=== PATIENT | female | born 1970 | race Caucasian/White ===

== ENCOUNTER 2023-07-03 11:00 | Emergency (ER) | payer MEDICAID ==
[2023-07-03] MEDS ORDERED: Sodium Chloride 0.9% 10 ML Syringe FLUSH PRN (11:24)
[2023-07-03] MEDS ORDERED: Iopamidol 755 Mg/ML 100 ML Bottle IVPUSH ONE (11:24)
[2023-07-03] MEDS ORDERED: Sodium Chloride 0.9% 100 ML IV SCH (11:30)
[2023-07-03 11:44] LABS: BASOPHILS ABSOLUTE AUTO 0.1 K/mm3 (0.0-0.2); EOSINOPHILS ABSOLUTE AUTO 0.2 K/mm3 (0.0-0.4); EOSINOPHILS PERCENT AUTO 2.7 % (0.0-6.0); HEMATOCRIT 42.7 % (37.0-47.0); HEMOGLOBIN 13.8 gm/dl (12.0-16.0); IMMATURE GRAN ABSOLUTE AUTO 0.03 K/mm3 (0.00-0.05); IMMATURE GRAN PERCENT AUTO 0.4 % (0.0-0.4); LYMPHOCYTES ABSOLUTE AUTO 2.4 K/mm3 (1.0-4.8); LYMPHOCYTES PERCENT AUTO 29.2 % (24.0-44.0); MEAN CORPUSCULAR HEMOGLOBIN 26.2 pg (28.0-32.0); MEAN CORPUSCULAR HGB CONC 32.3 g/dl (32.0-36.0); MEAN PLATELET VOLUME 11.9 fl (9.4-12.3); MONOCYTES ABSOLUTE AUTO 0.5 K/mm3 (0.0-0.8); MONOCYTES PERCENT AUTO 6.3 % (0.0-8.0); NEUTROPHILS PERCENT AUTO 60.4 % (41.0-71.0); PLATELET COUNT,PLT 290 K/mm3 (150-400); RED BLOOD CELL COUNT 5.27 M/mm3 (4.10-5.30); WHITE BLOOD CELL COUNT,WBC 8.21 K/mm3 (3.9-11.3)
[2023-07-03 11:55] LABS: INR 0.97; PROTHROMBIN TIME 10.4 SECONDS (9.7-12.0)
[2023-07-03 12:07] LABS: ALBUMIN 3.9 g/dl (3.4-5.0); ANION GAP 15.1 (5-15); BILIRUBIN TOTAL 0.6 mg/dL (0.2-1.0); BUN/CREATININE RATIO 27.8 (14-18); CALCIUM 9.5 mg/dL (8.5-10.1); CREATININE 0.9 mg/dL (0.55-1.02); EST CRCL DRUG DOSING (CG) 67.29 mL/min; POTASSIUM,K 4.1 mEq/L (3.5-5.1); PROTEIN TOTAL,TP 7.9 g/dl (6.4-8.2)
[2023-07-03] MEDS ORDERED: Labetalol 100 MG/20 ML MDV IVPUSH ONE ×2 (12:27→13:36)
[2023-07-03] MEDS ORDERED: Acetaminophen 325 MG Tab PO ONE (12:31)
[2023-07-03 15:24] VITALS: BP 173/100; PULSE 64
== END 2023-07-03 14:27 | disposition home or self-care (01) ==
LOC: JD.ED 11:00
DX: R20.0 Anesthesia of skin (principal); I10 Essential (primary) hypertension; J45.909 Unspecified asthma, uncomplicated; E66.9 Obesity, unspecified; Z88.6 Allergy status to analgesic agent; Z91.048 Other nonmedicinal substance allergy status; Z79.899 Other long term (current) drug therapy; Z90.49 Acquired absence of other specified parts of digestive tract; Z68.42 Body mass index [BMI] 45.0-49.9, adult
CPT/HCPCS: 36415; 70450; 70496; 70498; 80053; 82947; 84484; 85025; 85610; 85730; 93005; 96374; 96376; 99285; A9270; J1921; J3490; Q9967; 93010; 99284

== ENCOUNTER 2023-07-06 20:58 | Emergency (ER) | payer MEDICAID ==
[2023-07-06 21:12] VITALS: PULSE 82
[2023-07-06] MEDS ORDERED: Gabapentin 100 MG Cap PO ONE (22:15)
[2023-07-06] MEDS ORDERED: amLODIPine 10 MG Tab PO ONE (23:01)
[2023-07-06 23:21] VITALS: BP 174/75
[2023-07-07] MEDS ORDERED: amLODIPine 10 MG Tab PO SCH (21:00)
== END 2023-07-06 23:13 | disposition home or self-care (01) ==
LOC: JD.ED 20:58
DX: R20.2 Paresthesia of skin (principal); I10 Essential (primary) hypertension; J45.909 Unspecified asthma, uncomplicated; E66.9 Obesity, unspecified; Z88.5 Allergy status to narcotic agent; Z91.048 Other nonmedicinal substance allergy status; Z88.8 Allergy status to other drugs, medicaments and biological substances; Z79.899 Other long term (current) drug therapy; Z90.49 Acquired absence of other specified parts of digestive tract; Z68.42 Body mass index [BMI] 45.0-49.9, adult
CPT/HCPCS: 36415; 84443; 99284; A9270; 99283

== ENCOUNTER 2024-09-03 21:18 | Emergency (ER) | payer BC, OTHER ==
[2024-09-03 21:43] VITALS: BP 170/79; PULSE 74
[2024-09-03] MEDS: predniSONE 20 MG Tab PO ONE (21:48)
[2024-09-03] MEDS: Albuterol/Ipratropium 3.0-0.5 MG/3 ML Neb Soln NEB ONE (21:49)
== END 2024-09-03 22:40 | disposition home or self-care (01) ==
LOC: JD.ED 21:18
DX: J45.21 Mild intermittent asthma with (acute) exacerbation (principal); E66.9 Obesity, unspecified; K21.9 Gastro-esophageal reflux disease without esophagitis; Z91.048 Other nonmedicinal substance allergy status; Z88.8 Allergy status to other drugs, medicaments and biological substances; Z79.899 Other long term (current) drug therapy; Z90.49 Acquired absence of other specified parts of digestive tract; Z68.43 Body mass index [BMI] 50.0-59.9, adult
CPT/HCPCS: 71046; 71046-26; 94640; 99285; A9270-GY; J7512